=== PATIENT | female | born 1945 | race Caucasian/White ===

== ENCOUNTER → 2016-08-26 | Outpatient (CLI) | payer OTHER, MEDICARE ==
--- NOTE | 2016-08-26 15:30 | DX ---
Chest, PA and Lateral History: Cough x10 days, R05 Comparison: December 21, 2014 Findings: Inspiratory phase is less robust. Prior right lower lobe infiltrate has apparently cleared. Lungs are clear, without new infiltrate or consolidation. Heart size is normal. There is no adenopat hy or mass lesion. There is no pleural effusion. There is a chronic thoracolumbar scoliosis concave t o the left in the thoracic spine and concave to the right in the lumbar spine. Impression: Resolved right lower lobe pneumonia. No acute pneumonia identified.
== END ==
LOC: BMCIMAGING 14:53
PROVIDERS: ATTEND Internal Medicine
DX: J18.9 Pneumonia, unspecified organism (principal); E11.9 Type 2 diabetes mellitus without complications; R05 Cough; R21 Rash and other nonspecific skin eruption

== ENCOUNTER → 2017-03-19 | Outpatient (CLI) | payer OTHER, MEDICARE | LOC: FIMAGING 16:29 | PROVIDERS: ATTEND Internal Medicine | DX: M79.89 Other specified soft tissue disorders (principal) ==

== ENCOUNTER → 2017-04-23 | Outpatient (CLI) | payer OTHER, MEDICARE | LOC: BRMIMAGING 14:35 | PROVIDERS: ATTEND Internal Medicine Endocrinology, Diabetes & Metabolism | DX: Z13.820 Encounter for screening for osteoporosis (principal); M85.80 Other specified disorders of bone density and structure, unspecified site; M81.0 Age-related osteoporosis without current pathological fracture; Z78.0 Asymptomatic menopausal state ==

== ENCOUNTER 2017-12-07 10:12 | Emergency (ER) | payer OTHER, MEDICARE ==
--- NOTE | 2017-12-07 11:03 | EDPHY ---
H & P Stated Complaint: tripped on concrete barrier in parking lot hit forehead/ laceration/denies o Time Seen by Provider: 12/07/17 11:00 HPI/ROS: CHIEF COMPLAINT: Forehead laceration HISTORY OF PRESENT ILLNESS: 72-year-old female with no anticoagulant use was EN route to a physician appointment on the [facility] when she tripped on the parking strip falling forward impacting her head with no loss of consciousness, no nausea or vomiting, no headache. This occurred shortly before coming to the ER. Her tetanus is up-to-date. Denies: Headache , nausea, vomiting, midline C-spine pain, back pain, chest pain or trauma, abdominal pain or trauma, dyspnea. PRIMARY CARE PROVIDER:Dr. Eugenia Phan REVIEW OF SYSTEMS: A ten point review of systems was performed and is negative with the exception of the items mentioned in the HPI PAST MEDICAL/SURGICAL HISTORY: no anticoagulant use, anemia SOCIAL HISTORY: denies alcohol use at time of incident PHYSICAL EXAM 1) GENERAL: Well-developed, well-nourished, alert and oriented. Appears to be in no acute distress. Answering questions appropriately. 2) HEAD: Normocephalic, right frontal region 2.5 cm well-demarcated linear laceration 3) HEENT: Pupils equal, round, reactive to light bilaterally. Negative Horners. Nasopharynx, oropharynx, clear. No deformity or angulation of nose. No septal hematoma. No rhinorrhea. No oral trauma. Ears bilaterally with normal tympanic membranes. No hemotympanum. No fluid or blood in the external auditory canal. No raccoon eyes. No Booker sign. Teeth are normally aligned with no gross malocclusion, TMJ bilaterally nontender, facial bones nontender including the zygomatic arch, maxilla mandible. 4) NECK: No cervical collar is on. Posterior cervical spine is nontender, no stepoff, no effusion. Full range of motion which does not elicit any midline cervical spine pain, no posterior midline tenderness, no step-off. 5) LUNGS: Clear to auscultation bilaterally, no wheezes, no rhonchi, no retractions. No obvious signs of trauma. No chest wall pain. No flaring, no grunting. Moving symmetrically. No crepitus. 6) HEART: [Regular rate and rhythm, 7) ABDOMEN: No guarding, no rebound, no focal tenderness, no peritoneal signs, no signs of trauma, no ecchymosis 8) MUSCULOSKELETAL: Moving all extremities, no focal areas of tenderness, no obvious trauma. 9) BACK: No midline vertebral tenderness, no fluctuance, no step-off, no obvious trauma, no visual or palpable abnormality. 10) SKIN: Right frontal region laceration DIFFERENTIAL DIAGNOSIS: Not necessarily in any particular order, my differential diagnosis includes, but is not limited to, concussion, skull fracture, intraparenchymal contusion, subarachnoid, subdural and epidural hematoma. The patient understands that this diagnosis is provisional and can never be 100% accurate. - Personal History Current Tetanus/Diphtheria Vaccine: Yes - Medical/Surgical History Hx Asthma: No Hx Chronic Respiratory Disease: No Hx Diabetes: No Hx Cardiac Disease: No Hx Renal Disease: No Hx Cirrhosis: No Hx Alcoholism: No Hx HIV/AIDS: No Hx Splenectomy or Spleen Trauma: No Other PMH: anemia - Social History Smoking Status: Never smoked Constitutional: Initial Vital Signs Temperature (C) 36.4 C 12/07/17 10:38 Heart Rate 84 12/07/17 10:38 Respiratory Rate 18 12/07/17 10:38 Blood Pressure 144/119 H 12/07/17 10:38 O2 Sat (%) 94 12/07/17 10:38 O2 Delivery Mode Room Air Allergies/Adverse Reactions: azathioprine [Azathioprine] Allergy (Severe, Verified 12/07/17 10:37) VOMITTING simvastatin [Simvastatin] Allergy (Severe, Verified 12/07/17 10:37) INCREASED PAIN TO WHOLE BODY cephalexin [Cephalexin] Allergy (Unknown, Verified 12/07/17 10:37) TWITCHING colchicine [Colchicine] Allergy (Unknown, Verified 12/07/17 10:37) Unknown cyclosporine [Cyclosporine] Allergy (Unknown, Verified 12/07/17 10:37) VOMITTING dexamethasone [From TobraDex] Allergy (Unknown, Verified 12/07/17 10:37) SWELLING tobramycin sulfate [From TobraDex] Allergy (Unknown, Verified 12/07/17 10:37) SWELLING BEESTINGS Allergy (Severe, Uncoded 07/25/10 16:33) SWELLING IDEBENOL CREAM Allergy (Unknown, Uncoded 07/25/10 16:32) SWELLING Home Medications: Medication Instructions Recorded FERROUS SULFATE 06/12/10 LISINOPRIL 06/12/10 LORAZEPAM 06/12/10 METOPROLOL TARTRATE 06/12/10 PRILOSEC 06/12/10 Percocet 5/325 06/12/10 SULFASALAZINE 06/12/10 TEMAZEPAM 06/12/10 VITAMIN D 06/12/10 Lisinopril 12/07/17 Medical Decision Making Procedures: Procedure: Laceration repair with tissue adhesive Verbal consent was obtained from the patient. The right forehead laceration was anesthetized with 1% lidocaine with epinephrine, was scrubbed and explored to its base with a gloved finger. No foreign body seen, no foreign bodies palpated. There were no deep structures involved. The wound was repaired with tissue adhesive. The procedure was performed by myself. Patient has been informed that scarring will occur, although every effort has been made to minimize this. ED Course/Re-evaluation: 11:01 a.m.: I have evaluated the patient, she is laceration which will be closed in the ER. I recommended CT imaging of the head. Patient declines this. She has been informed of the risks of declining this including, but not limited to, , permanent and chronic disability. She continues to decline this. I believe her to have decision-making capacity. Care of patient under supervision of secondary supervising physician Dr Dubois . Departure - Departure Disposition: Home, Routine, Self-Care Clinical Impression: Laceration of forehead Qualifiers: Encounter type: initial encounter Qualified Code(s): S01.81XA - Laceration without foreign body of other part of head, initial encounter Head injury due to trauma Qualifiers: Encounter type: initial encounter Qualified Code(s): S09.90XA - Unspecified injury of head, initial encounter Condition: Good Instructions: Laceration (ED), Head Injury (ED) Additional Instructions: ALTHOUGH THERE IS NO EVIDENCE OF SERIOUS HEAD INJURY AT THIS TIME, DELAYED SIGNS CAN APPEAR 24 TO 48 HOURS AFTER INJURY. PLEASE RETURN TO THE EMERGENCY DEPARTMENT (ED) IMMEDIATELY IF YOU HAVE INCREASED HEADACHE, PERSISTENT HEADACHE , VOMITING, WEAKNESS, CONFUSION OR VISUAL PROBLEMS. WE RECOMMEND THAT YOU DO NOT RESUME CONTACT SPORTS OR ACTIVITIES THAT TAKE COORDINATION OR BALANCE SUCH SKIING OR RIDING A BICYCLE UNTIL CLEARED TO DO SO BY YOUR DOCTOR OR BY A NEUROLOGIST. Referrals: Follow-up, with primary care provider in 2-3 days [Other] - As per Instructions
[2017-12-07] MEDS ORDERED: SKIN ADHESIVE (DERMABOND) 1 EACH TP ONE (11:24)
[2017-12-07 11:42] VITALS: BP 135/89
== END 2017-12-07 11:41 | disposition home or self-care (01) ==
PROC: 0HQ1XZZ Repair Face Skin, External Approach (ICD-10-PCS; principal; 2017-12-07)
DX: S01.81XA Laceration without foreign body of other part of head, initial encounter (principal); W01.198A Fall on same level from slipping, tripping and stumbling with subsequent striking against other object, initial encounter; Y92.238 Other place in hospital as the place of occurrence of the external cause

== ENCOUNTER → 2018-04-23 | Outpatient (CLI) | payer OTHER, MEDICARE ==
[~2018-04-23] MED LIST: GADOBUTROL 10 ML VIAL IVP ONE
== END ==
LOC: FIMAGING 10:06
PROVIDERS: ATTEND Internal Medicine
DX: R42 Dizziness and giddiness (principal); G31.9 Degenerative disease of nervous system, unspecified; R90.82 White matter disease, unspecified; I25.2 Old myocardial infarction
CPT/HCPCS: 70553; A9585

== ENCOUNTER → 2018-05-03 | Outpatient (CLI) | payer OTHER, MEDICARE | LOC: FIMAGING 09:29 | PROVIDERS: ATTEND Internal Medicine | DX: I65.23 Occlusion and stenosis of bilateral carotid arteries (principal) ==

== ENCOUNTER → 2018-09-13 | Outpatient (CLI) | payer OTHER, MEDICARE | LOC: BMCIMAGING 14:02 | PROVIDERS: ATTEND Internal Medicine | DX: J98.09 Other diseases of bronchus, not elsewhere classified (principal); R91.1 Solitary pulmonary nodule ==

== ENCOUNTER → 2018-09-14 | Outpatient (CLI) | payer OTHER, MEDICARE | LOC: FIMAGING 10:10 | PROVIDERS: ATTEND Internal Medicine | DX: R91.1 Solitary pulmonary nodule (principal); J47.9 Bronchiectasis, uncomplicated ==

== ENCOUNTER → 2019-01-13 | Outpatient (CLI) | payer OTHER, MEDICARE | LOC: BMCIMAGING 15:38 ==